=== PATIENT | female | born 1985 | race Caucasian/White ===

== ENCOUNTER 2016-12-02 18:50 | Emergency (ER) | payer SELFPAY ==
[~2016-12-02] VITALS: Ht 170.2 cm; Wt 66.2 kg
[2016-12-02 18:53] VITALS: TEMP 37.1; Ht 170.2 cm; Wt 66.2 kg
[2016-12-02] MEDS ORDERED: IBUPROFEN 800 MG TAB PO STA (20:39)
[2016-12-02] MEDS ORDERED: DIPHTHERIA/TETANUS/PERTUSSIS 0.5 ML SYR/VIAL IM. ONE (20:45)
[2016-12-02] MEDS ORDERED: BUPIVACAINE 0.5 % 5 MG/1 ML MPF 30ML VIAL INFIL ONE (20:45)
[2016-12-02] MEDS ORDERED: XYLOCAINE 1%/SOD BICARB 20 ML VIAL INFIL ONE (20:45)
--- NOTE | 2016-12-02 20:49 | EMERGENCY ROOM VISIT NOTE ---
ED Visit Note First contact with patient: 20:34 CHIEF COMPLAINT: Dog bite, right middle finger, Right shoulder pain HISTORY OF PRESENT ILLNESS: This 31-year-old female patient presents to the emergency department approximately 5 hours after getting bitten by her own dog on the right middle finger. The patient states she was breaking up a dogfight and her own dog bit her right middle finger. The dog is up-to-date with all of its vaccinations including rabies. While evaluating the patient, she begins complaining of right shoulder pain. She states "I think the dogs pulled my arm ". She states she is unable to raise the arm above the shoulder. She is unable to shrug her shoulders, and is unable to pronate without discomfort. The bleeding has stopped. Denies weakness or numbness of the finger. The patient has full range of motion of the fingers. The patient rates the pain as throbbing and 7/10. The patient denies any other injuries. The patient's tetanus shot is not up to date. REVIEW OF SYSTEMS: A 6 system review of systems was completed with positives and pertinent negatives listed in the HPI. ALLERGIES: None MEDICATIONS: None PMH: None SOCIAL HISTORY: Lives locally with family. She denies drug, alcohol use. The patient states she smokes less than one pack per day PHYSICAL EXAM: Vital Signs: Reviewed Nurse's notes, vital signs stable. GENERAL: This is a 31-year-old white female, in no acute distress, well developed, well nourished. SKIN: There are 3-0.5 cm long lacerations on the right middle finger. The edges gape apart with and without traction. There is no foreign material in the wound and it looks clean. There is no active bleeding. No deep structures such as tendons, bones, or significant blood vessels are seen in the base of the wound. Extension and flexion of the finger is full and strong. Full range of motion of the wrist and other fingers. Capillary refill less than 2 seconds. Normal sensation to light and sharp touch. MUSCULOSKELETAL: There is no deformity in the contour of the right shoulder and there are no josse deformities noted. There is negative sulcus sign. There is tenderness over the deltoid muscle and rotator cuff. The patient's range of motion is significantly limited due to pain. Supraspinatus strength 2/5. There is no clavicle tenderness. No tenderness of the humerus, elbow, wrist, or hand. Bottle Assembler strength 5/5. Radial pulse 2+. NECK: No tenderness to palpation over the cervical spine. HEART: Regular rate and rhythm without murmurs gallops or rubs. LUNGS: Clear to auscultation bilaterally without wheezes, rales or rhonchi. No accessory muscle use. No retractions. RADIOLOGY: X-Ray Right Shoulder: R SHOULDER MIN 2 VIEWS ROUTINE CLINICAL HISTORY: Right shoulder pain. COMPARISON: None FINDINGS: Alignment of the right shoulder is anatomic. No acute fracture is identified. IMPRESSION: No acute fracture or dislocation of the right shoulder. Electronically signed by: Candelario Luis M.D. 12/02/2016 9:52 PM Dictated Date/Time: 12/02/2016 9:50 PM EMERGENCY DEPARTMENT COURSE: I examined the patient. She initially did not complain about shoulder pain, however after the examination of her finger, she states "can I have like a pain killer or something". Her right shoulder is causing her significant amount of discomfort believes there to be a muscular problem from breaking up the dog fight. She states she thinks the dog's pulled her arm. An x-ray of the right shoulder was obtained and the patient was given 800 mg ibuprofen by mouth. X-ray was negative for acute fracture or dislocation. Verbal consent was obtained to perform the procedure. Using sterile technique the wound was cleansed with Betadine. 3 ml of 1% buffered lidocaine with 0.5% bupivacaine was used to perform a digital block to anesthetize the patient. The area was sterilely draped. Once the patient was anesthetized, the wounds were copiously irrigated under pressure with sterile saline. The wounds were explored and there were no deep structures injured. The lacerations were repaired using 5 total simple interrupted 5-0 nylon sutures, 2 in 2 of the lacerations (one medial, one lateral), and 1 in the other laceration - lateral. The patient tolerated the procedure well. Hemostasis was achieved. The area was cleaned with sterile saline and dressed with bacitracin ointment and bandage. The patient was given a tetanus booster (Adacel). The patient was discharged home in good condition with a homepack for her first 2 doses of Augmentin. I attest that I have personally reviewed the patient's current medication list. Patient was found to have normal blood pressure on screening and does not require follow-up. DIFFERENTIAL DIAGNOSIS: Laceration, contusion, puncture wound, dog bite, shoulder sprain or strain, fracture, and others DIAGNOSIS: Finger laceration, right shoulder pain Current/Historical Medications Scheduled Amoxicillin & Pot Clavulanate (Augmentin 875-125 mg), 1 TAB PO BID Allergies Coded Allergies: Banana (Unverified Allergy, Unknown, THROAT CLOSES/HIVES, 12/02/16) Vital Signs Date Time Temp Pulse Resp B/P (MAP) Pulse Ox O2 Delivery O2 Flow Rate FiO2 12/02/16 22:30 88 16 114/76 98 12/02/16 20:53 88 16 137/76 96 Room Air 12/02/16 18:53 37.1 101 16 126/80 96 Room Air Medications Administered Medications (Trade) Dose Ordered Sig/Nils Route Start Time Stop Time Status Last Admin Dose Admin Lidocaine HCl (Buffered Lidocaine 1% Inj) 20 ml ONE ONCE INFIL 12/02/16 20:45 12/02/16 20:46 DC 12/02/16 21:19 20 ML Ibuprofen (Motrin Tab) 800 mg NOW STAT PO 12/02/16 20:39 12/02/16 20:41 DC 12/02/16 21:18 800 MG Diphtheria/ Pertussis/Tetanus Vacc (Adacel Inj) 0.5 ml ONCE ONCE IM. 12/02/16 20:45 12/02/16 20:46 DC 12/02/16 21:19 0.5 ML Amoxicillin/ Clavulanate Potassium (Augmentin 875MG Home Pack) 875 homepack BID PO 12/02/16 22:30 12/02/16 22:31 DC 12/02/16 22:30 875 HOMEPACK Departure Information Impression Primary Impression: Dog bite Additional Impressions: Laceration of right middle finger w/o foreign body w/o damage to nail Right shoulder pain Dispostion Home / Self-Care Condition GOOD Prescriptions Amoxicillin & Pot Clavulanate (Augmentin 875-125 mg) 1 Tab Tab 1 TAB PO BID for 10 Days, #20 TAB Prov: Wilma Benoit, ALESSANDRA 12/02/16 Referrals No Doctor, Assigned (PCP) Patient Instructions ED Bite Dog, ED Laceration Ext Sutr Stap Tape, ED Sprain Shoulder, [facility] Additional Instructions You have received 5 total sutures on your middle finger. These sutures are NOT dissolvable and WILL need to be removed by a health care provider in 8-10 days. You can return to the Emergency Department or contact your Primary Care Provider to have the sutures removed. Proper wound care is essential for adequate wound healing and infection prevention. You can shower and clean the wound with soap and water. Do not scour over the wound, pat dry with a towel. Do not submerse the wound (i.e. bathe or dish wash) until the sutures have been removed. You can use an antibiotic ointment with a dressing over the wound for the next 3-4 days. After this time you may leave the wound dry and open to the air. If crust develops over the wound you can use a Q-tip to apply a 1:1 peroxide:water solution to clean the wound. Look for signs of infection of the wound including: increased pain, swelling, foul discharge, streaking, or increased temperature. If any of these are noticed you should return to the Emergency Department for further assessment and treatment. As with any laceration you may have received nerve damage to the surrounding tissues. This damage may or may not be permanent. You should keep the area covered with sunscreen for the first 6 months to 1 year when at risk for exposure to help minimize scarring. You can also use scar reducing creams or Vitamin E oil to help minimize scarring. You may consider an arm sling for comfort for the right shoulder pain. If this does not resolve in 1-2 weeks, follow up with your PCP or orthopedics for further evaluation. X-ray was negative at this time. Ibuprofen(Motrin, Advil) may be used for fever or pain. Use 600mg every six hours as needed. Take with food. Avoid using more than 2400mg in a 24 hour period. Do not use 2400mg per day for more than three consecutive days without physician direction. Prolonged inappropriate use can lead to stomach upset or ulcers. (AND/OR) Acetaminophen(Tylenol) may be used for fever or pain. Use 1000mg every six hours as needed. Avoid using more than 3000mg in a 24 hour period. Return to the emergency department if your symptoms worsen despite treatment course outlined above. Problem Qualifiers Primary Impression: Dog bite Encounter type: initial encounter Qualified Codes: W54.0XXA - Bitten by dog , initial encounter Additional Impressions: Laceration of right middle finger w/o foreign body w/o damage to nail Encounter type: initial encounter Qualified Codes: S61.212A - Laceration without foreign body of right middle finger without damage to nail, initial encounter Right shoulder pain Chronicity: acute Qualified Codes: M25.511 - Pain in right shoulder
--- NOTE | 2016-12-02 21:53 | DIAGNOSTIC IMAGING REPORT ---
R SHOULDER MIN 2 VIEWS ROUTINE CLINICAL HISTORY: Right shoulder pain. COMPARISON: None FINDINGS: Alignment of the right shoulder is anatomic. No acute fracture is identified. IMPRESSION: No acute fracture or dislocation of the right shoulder. Electronically signed by: Candelario Luis M.D. 12/02/2016 9:52 PM Dictated Date/Time: 12/02/2016 9:50 PM
[2016-12-02] MEDS ORDERED: AMOX875T PO (22:28)
[2016-12-02 22:30] VITALS: BP 114/76; PULSE 88; O2SAT 98
[2016-12-02] MEDS ORDERED: AMOXICIL/CLAVU 875MG HOME PACK PO SCH (22:30)
== END 2016-12-02 22:30 | disposition home or self-care (01) ==
LOC: C.EDB 18:51 → C.EDD 22:30
DX: S61.212A Laceration without foreign body of right middle finger without damage to nail, initial encounter (principal); W54.0XXA Bitten by dog, initial encounter; Z23 Encounter for immunization; M25.511 Pain in right shoulder; F17.200 Nicotine dependence, unspecified, uncomplicated; Z91.018 Allergy to other foods

== ENCOUNTER 2019-01-11 17:53 | Inpatient (IN) ==
[2019-01-11] MEDS ORDERED: OXYTOCIN 30 UNITS/500 ML BAG IV PRN ×3 (18:19→23:21)
[2019-01-11] MEDS: LACTATED RINGER'S 1,000 ML IV PRN ×2 (18:30→19:37)
[2019-01-11 18:36] LABS: Mean Corpuscular Hemoglobin 30.2 pg (25-34); Mean Corpuscular Volume 88.2 fL (80-100); Mean Platelet Volume 10.4 fL (7.4-10.4); Platelet Count 202 K/uL (130-400); RDW Coefficient of Variation 14.4 % (11.5-14.5); RDW Standard Deviation 46.8 fL (36.4-46.3); Red Blood Count 3.97 M/uL (4.2-5.4); White Blood Count 13.62 K/uL (4.8-10.8)
[2019-01-11 18:37] LABS: Mean Corpuscular Hgb Conc 34.3 g/dL (32-36)
[2019-01-11] MEDS ORDERED: ePHEDrine sulfate 50 MG/ML AMP ONE (18:39)
[2019-01-11] MEDS ORDERED: BUPIVACAINE 0.25% 30 ML VIAL ONE (18:39)
[2019-01-11] MEDS ORDERED: fentaNYL citrate 100 MCG/2 ML VIAL ONE (18:39)
[2019-01-11] MEDS ORDERED: fentaNYL 2MCG/ML ROPIV 1.25MG/ML 100 ML BAG EPI ONE (18:40)
[2019-01-11 18:50] LABS: Amphetamines+Metham, Urine Neg (Neg); Barbiturates, Urine Neg (Neg); Benzodiazepine, Urine Neg (Neg); Cocaine, Urine Neg (Neg); MDMA (Ecstacy), Urine Neg (Neg); Methadone, Urine Neg (Neg); Opiate, Urine Neg (Neg); Phencyclidine, Urine Neg (Neg)
[2019-01-11] MEDS ORDERED: ONDANSETRON INJ 2 MG/ML 2 ML VIAL IV PRN (19:18)
[2019-01-11] MEDS ORDERED: NALBUPHINE HCL INJ 10 MG/ML AMP IV PRN (19:18)
[2019-01-11] MEDS ORDERED: ePHEDrine sulfate 50 MG/ML AMP IV PRN (19:18)
[2019-01-11] MEDS ORDERED: NALOXONE HCL 0.4 MG/1 ML VIAL/CARP IV PRN (19:18)
[2019-01-11] MEDS ORDERED: fentaNYL 2MCG/ML ROPIV 1.25MG/ML 100 ML BAG EPI PRN (19:18)
[2019-01-11] MEDS ORDERED: DiphenhydrAMINE HCL 50 MG/ML VIAL IV PRN (19:18)
[2019-01-11] MEDS ORDERED: NALOXONE HCL 1 MG in SODIUM CHLORIDE 0.9% 1000ML 1,000 ML IV PRN (19:18)
--- NOTE | 2019-01-11 19:24 | Anesthesiology Consultation ---
Date of Service January 11, 2019 Assessment & Plan Chart Review Chart Review: Patient NOT seen in Pre Admission Testing and Acceptable Risk for Labor Epidural Consults Requested none ASA ASA2 Proposed Anesthesia Anesthesia Type: Labor Epidural and CSE Risk / Benefits Reviewed With: PT / POA / Parent / Guardian, Accepts Plan and Informed Consent Obtained History Height/Weight Height: 5 ft 7 in Weight: 88.904 kg Allergies Allergy/AdvReac Type Severity Reaction Status Date / Time banana Allergy Severe THROAT Verified 01/11/19 19:11 CLOSES/HIVES Medications Home Medications Medication Instructions Recorded Confirmed Last Taken albuterol sulfate 0.63 mg INHALATION QID PRN 01/11/19 01/11/19 Unknown calcium carbonate [Tums] 200 mg PO BID 01/11/19 01/11/19 01/10/19 ondansetron HCl [Zofran] 4 mg PO BID PRN 01/11/19 01/11/19 01/11/19 pediatric multivitamin no.76 1 tab PO DAILY 01/11/19 01/11/19 01/10/19 [Neeru Complete] Active Medications Generic Name Dose Route Start Last Admin Trade Name Freq PRN Reason Stop Dose Admin Lactated Ringer's 1,000 mls @ 125 mls/hr 01/11/19 18:30 01/11/19 18:30 Lr IV 01/13/19 18:29 999 mls/hr .Q8H PRN Administration L&D Protocol Protocol Past Medical History Medical History (Updated 01/11/19 @ 19:23 by Rich Perez MD) Asthma Uses Albuterol PRN Bleeding in early Drug abuse, marijuana History of varicella Maternal UTI (urinary tract infection) Maternal UTI (urinary tract infection) (Inactive) Nausea and vomiting in (Inactive) No significant past medical history Exercise / Class Metabolic Activity II 4-5 Yardwork/Stairs/Walk up hill Past Family History Family History Mother Ovarian cancer Other Family history non-contributory Past Surgical History Surgical History No significant past surgical history S/P wisdom tooth extraction Past Anesthesia History No Hx of Anesthesia Complications and No Family Hx of Anesthesia Complications Social History Smoking Status: Former smoker tobacco type: cigarettes Smoking cigarettes per day: 1 ppd Do You Dip or Chew Tobacco: No Hx Alcohol Use: No Hx Substance Use: Yes substance use type: marijuana Last Used Substance: Hours (ago) Last Used Substance Other:: 1400 Review of Systems no chest pain or sob Physical Exam Vital Signs Last Vital Signs Temp 36.9 C 01/11/19 19:11 Pulse 85 01/11/19 19:20 Resp 18 01/11/19 19:11 BP 109/76 01/11/19 19:00 Pulse Ox 99 01/11/19 19:20 ENMT Mouth: no TMJ abnormality Thyromental Distance: > or= 3.5 Finger Breadths Mallampati Class: II Neck normal visual inspection Respiratory normal respiratory effort Auscultation: lungs clear to auscultation bilaterally Cardiovascular Rate/Rhythm: regular rate and regular rhythm Musculoskeletal Spine: normal cervical ROM Neurologic moves all extremities Psychiatric Orientation: alert and oriented x 3 Testing Laboratory Results 01/11/19 18:27
--- NOTE | 2019-01-11 19:25 | Anesthesiology Consultation ---
Date of Service January 11, 2019 History Height/Weight Height: 5 ft 7 in Weight: 88.904 kg Allergies Allergy/AdvReac Type Severity Reaction Status Date / Time banana Allergy Severe THROAT Verified 01/11/19 19:11 CLOSES/HIVES Medications Home Medications Medication Instructions Recorded Confirmed Last Taken albuterol sulfate 0.63 mg INHALATION QID PRN 01/11/19 01/11/19 Unknown calcium carbonate [Tums] 200 mg PO BID 01/11/19 01/11/19 01/10/19 ondansetron HCl [Zofran] 4 mg PO BID PRN 01/11/19 01/11/19 01/11/19 pediatric multivitamin no.76 1 tab PO DAILY 01/11/19 01/11/19 01/10/19 [Flintstones Complete] Active Medications Generic Name Dose Route Start Last Admin Trade Name Freq PRN Reason Stop Dose Admin Lactated Ringer's 1,000 mls @ 125 mls/hr 01/11/19 18:30 01/11/19 18:30 Lr IV 01/13/19 18:29 999 mls/hr .Q8H PRN Administration L&D Protocol Protocol NPO Date Last Intake of Fluids: 01/11/19 Time Last Intake of Fluids: 18:30 Date Last Intake of Solids: 01/11/19 Time Last Intake of Solids: 16:30 Exercise / Class Metabolic Activity II 4-5 Yardwork/Stairs/Walk up hill Past Family History Family History Mother Ovarian cancer Other Family history non-contributory Past Surgical History Surgical History No significant past surgical history S/P wisdom tooth extraction Past Anesthesia History No Hx of Anesthesia Complications and No Family Hx of Anesthesia Complications History of PONV No Hx of PONV and History of PONV Social History Smoking Status: Former smoker tobacco type: cigarettes Smoking cigarettes per day: 1 ppd Do You Dip or Chew Tobacco: No Hx Alcohol Use: No Hx Substance Use: Yes substance use type: marijuana Last Used Substance: Hours (ago) Last Used Substance Other:: 1400 Physical Exam Vital Signs Last Vital Signs Temp 36.9 C 01/11/19 19:11 Pulse 85 01/11/19 19:20 Resp 18 11/24/19 19:11 BP 109/76 01/11/19 19:00 Pulse Ox 99 01/11/19 19:20 ENMT Mouth: no TMJ abnormality Thyromental Distance: > or= 3.5 Finger Breadths Mallampati Class: II Neck normal visual inspection Respiratory normal respiratory effort Auscultation: lungs clear to auscultation bilaterally Cardiovascular Rate/Rhythm: regular rate and regular rhythm Musculoskeletal Spine: normal cervical ROM Neurologic moves all extremities Psychiatric Orientation: alert and oriented x 3 Testing Laboratory Results 01/11/19 18:27
--- NOTE | 2019-01-11 19:59 | History & Physical Report ---
Date of Service January 11, 2019 Assessment & Plan (1) Supervision of normal intrauterine in multigravida: -Tracing category 2 -Patient comfortable with epidural -Contractions spaced after epidural -Pitocin augmentation -Anticipate vaginal delivery (2) Drug abuse, marijuana: -Urine drug screen as explained to the patient -If positive, social service consult with CYS referral History of Present Illness Chief Complaint: Labor Primary Care Provider: NO PCP The patient is a 33-year-old 3 para 1 with an EDC of 14 January, at 39+ weeks gestational age, who presents to labor and delivery for a labor check. Patient states her contractions began in earnest at approximately 1600 hrs. on day of admission. Patient denies rupture of membranes or vaginal bleeding. Patient's course was remarkable for a positive urine drug screen at her new OB visit. This was positive for marijuana. Patient had been counseled to discontinue the marijuana during the . Laboratory values for the show blood type of O+, antibody negative, rubella immune, hepatitis B negative, she had a negative cystic fibrosis, negative SMA, negative cell free DNA screen. She had a normal 1 hour Glucola x2, and a negative third trimester beta strep culture. Allergies Allergy/AdvReac Type Severity Reaction Status Date / Time banana Allergy Severe THROAT Verified 01/11/19 19:11 CLOSES/HIVES Home Medications Home Medications Medication Instructions Recorded Confirmed Type albuterol sulfate 0.63 mg INHALATION QID PRN 01/11/19 01/11/19 History calcium carbonate [Tums] 200 mg PO BID 01/11/19 01/11/19 History ondansetron HCl [Zofran] 4 mg PO BID PRN 01/11/19 01/11/19 History pediatric multivitamin no.76 1 tab PO DAILY 01/11/19 01/11/19 History [Flintstones Complete] Patient History Surgical History No significant past surgical history S/P wisdom tooth extraction Family History Mother Ovarian cancer Other Family history non-contributory Social History Preferred Language: Icelandic Communication Ability: Effective Beliefs That Will Affect Care: None marital status: Single Current Living Situation: Significant Other Current Living Situation Comment: Lives with boyfriend and 10 year old daughter in a house Other Information That Helps Us Care for You: No Feels Safe at Home: Yes Safety Concerns: Feels Safe At This Time Smoking Status: Former smoker Tobacco Type: cigarettes ; packs per day: 0.5 ; Cigarettes Per Day: 1 ppd ; Do You Dip or Chew Tobacco: No ; Second Hand Exposure: No ; Tobacco Cessation Education Requested by Patient: No Hx Alcohol Use: No Hx Substance Use: Yes substance use type: marijuana Last Used Substance: Hours (ago) Last Used Substance Other:: 1400 Physical Exam Constitutional: WD/WN, vitals as above Respiratory: Auscultation: lungs clear to auscultation bilaterally Cardiovascular: RRR, no murmur, no edema Extremities: no calf tenderness Gastrointestinal (Abdomen): Gravid, vertex, positive heart tones, estimated weight of 7-1/2 pounds Genitourinary: Cervix: 5 cm / 80%/-2, artificial rupture of membranes, clear fluid Results & Data Vital Signs (Past 12 Hours) Vital Signs Temp Pulse Resp BP Pulse Ox 01/11/19 19:51 86 96 01/11/19 19:50 85 121/62 01/11/19 19:48 83 124/59 L 01/11/19 19:46 87 101/58 L 96 01/11/19 19:44 79 112/58 L 01/11/19 19:42 77 113/59 L 01/11/19 19:40 82 108/55 L 97 01/11/19 19:38 74 97/53 L 01/11/19 19:35 92 H 98 01/11/19 19:30 99 H 98 01/11/19 19:28 103 H 94 01/11/19 19:25 83 98 01/11/19 19:20 85 99 01/11/19 19:11 98.4 F 18 01/11/19 19:00 79 109/76 01/11/19 18:27 98.1 F 18 01/11/19 18:03 94 H 128/77
--- NOTE | 2019-01-11 21:10 | Labor Progress Brief Note ---
Date of Service January 11, 2019 Subjective Reason For Note: Routine Evaluation Assessment & Plan (1) Supervision of normal intrauterine in multigravida: - tracing Cat II - continue pitocin Physical Exam Genitourinary: OB Exam Monitor Tracing: + category II, + normal FHT variabil ity and + variable decelerations Cervix: 6-7/90/0 Results & Data Vital Signs (Past 12 Hours) Vital Signs Temp Pulse Resp BP Pulse Ox 01/11/19 21:06 70 97 01/11/19 21:05 73 123/57 L 01/11/19 21:01 68 96 01/11/19 21:00 18 01/11/19 20:56 71 96 01/11/19 20:51 65 113/61 97 01/11/19 20:46 59 L 95 01/11/19 20:41 70 96 01/11/19 20:36 64 96 01/11/19 20:35 72 122/68 01/11/19 20:31 74 18 96 01/11/19 20:26 86 96 01/11/19 20:21 66 115/64 95 01/11/19 20:20 18 01/11/19 20:16 78 96 01/11/19 20:11 73 97 01/11/19 20:10 18 01/11/19 20:06 70 118/57 L 96 01/11/19 20:01 70 96 01/11/19 20:00 18 01/11/19 19:56 82 96 01/11/19 19:55 98.4 F 18 01/11/19 19:51 86 96 01/11/19 19:50 85 121/62 01/11/19 19:48 83 124/59 L 01/11/19 19:46 87 101/58 L 96 01/11/19 19:44 79 112/58 L 01/11/19 19:42 77 113/59 L 01/11/19 19:40 82 108/55 L 97 01/11/19 19:38 74 97/53 L 01/11/19 19:35 92 H 98 01/11/19 19:30 99 H 98 01/11/19 19:28 103 H 94 01/11/19 19:25 83 98 01/11/19 19:20 85 99 01/11/19 19:11 98.4 F 18 01/11/19 19:00 79 109/76 01/11/19 18:27 98.1 F 18 01/11/19 18:03 94 H 128/77
--- NOTE | 2019-01-11 23:11 | Anesthesia Procedure Note ---
Date of Service January 11, 2019 Anesthesia Post Epidural Note Vital Signs Vital Signs: Temp Pulse Resp BP Pulse Ox 36.9 C 91 H 18 126/63 96 01/11/19 21:00 01/11/19 23:07 01/11/19 21:30 01/11/19 23:05 01/11/19 23:07 Notes Mental Status: alert / awake / arousable and participated in evaluation Nausea / Vomiting: adequately controlled Pain: adequately controlled Airway Patency, RR, SpO2: stable & adequate BP & HR: stable & adequate Hydration State: stable & adequate Neuraxial Anesthesia: was administered and sensory block is resolving Anesthetic Complications: no major complications apparent and Pt Satisfied with anesthetic care Epidural: Removed without complications and With tip intact
--- NOTE | 2019-01-11 23:13 | Delivery Summary ---
Vaginal Delivery Summary Date of Service January 11, 2019 Vaginal Delivery Summary Findings: Viable male with Apgars of 8 and 9, baby delivered over midline second-degree laceration, nuchal cord x1 reduced on the perineum, cord gases and cord blood samples obtained. The patient is a 33-year-old 3 para 1 with an EDC of 14 January, at 39+ weeks gestational age, who presents to labor and delivery for a labor check. Patient states her contractions began in earnest at approximately 1600 hrs. on day of admission. Patient denies rupture of membranes or vaginal bleeding. Patient's course was remarkable for a positive urine drug screen at her new OB visit. This was positive for marijuana. Patient had been counseled to discontinue the marijuana during the . Laboratory values for the show blood type of O+, antibody negative, rubella immune, hepatitis B negative, she had a negative cystic fibrosis, negative SMA, negative cell free DNA screen. She had a normal 1 hour Glucola x2, and a negative third trimester beta strep culture. Upon admission the patient was 3 to 4 cm dilated 50% effaced and -2 station. She was extremely uncomfortable and anesthesia was consulted and an epidural was placed. Following placement of the epidural the patient's contractions spaced out. Over the next several hours the patient progressed to full dilatation and began her second stage. During the second stage she had variable decelerations with good variability. She pushed for approximately 45 minutes delivering the viable male infant over a midline second-degree laceration nuchal cord x1 was reduced on the perineum and the baby was delivered. Cord gases and cord blood samples were obtained. The placenta was delivered spontaneously and sent for pathological evaluation. Inspection of the perineum showed a midline second degree laceration which was repaired with 4-0 Vicryl. Estimated blood loss for the delivery was 300 cc. Sponge needle count was correct.
[2019-01-11] MEDS ORDERED: BENZOCAINE 20% AER SPR 82.5 GM CAN EXT PRN (23:21)
[2019-01-11] MEDS ORDERED: SUPERCREAM 0.870% 15 GM JAR EXT PRN (23:21)
[2019-01-11] MEDS ORDERED: DIPHTHERIA/TETANUS/PERTUSSIS 0.5 ML SYR/VIAL IM ONE (23:21)
[2019-01-11] MEDS ORDERED: HYDROCORTISONE ACETATE 25 MG SUPP PR PRN (23:21)
[2019-01-11 23:45] LABS: Base Excess Cord Venous Blood -1.3 mEq/L (-7.7-1.9); Cord Venous Blood HCO3 25 mmol/L (18.4-26.8); Cord Venous Blood PCO2 45 mmHg (30.4-57.2); Cord Venous Blood PO2 30 mmHg (14.1-43.3); Cord Venous Blood pH 7.35 (7.20-7.44)
[2019-01-11 23:46] LABS: Base Excess Cord Arterial Bld -6.3 mEq/L (-9-1.8); CO2 Cord Arterial Blood 68 mmHg (39.1-73.5); HCO3 Cord Arterial Blood 24 mmol/L (19.7-28.5); PO2 Cord Arterial Blood 23.6 % (4.1-31.7); pH Cord Arterial Blood 7.16 (7.1-7.38)
[2019-01-11 23:47] LABS: Oxygen Sat Cord Arterial Blood < 60.0 % (<60)
--- NOTE | 2019-01-12 06:10 | Obstetrical Progress Note ---
Date of Service January 12, 2019 Assessment & Plan (1) Status post vaginal delivery: Mayela is a 33 yo on PPD1 after a at 39w - GBS -, Blood Type O+, Rubella immune -Vitals reviewed and WNL (Tmax 37.1) -patient is doing clinically well Continue routine post care - After discharge will have [address] Finney. Supervising Physician Co-Signing Physician Notes Resident Physician Supervision Note: I was present with Dr. Bhakta during the history and exam. I discussed the case with the resident and agree with the findings and plan as documented in the note. Any exceptions or clarifications are listed here: [None] Documented By: Warren Finney Jr, MD, FACOG Subjective Pain well controlled Ambulation: yes Voiding: yes Passing Gas:: Yes Diet Tolerance:: regular Lochia:: moderate Feeding Type:: breast feeding Review of Systems Constitutional: no fever, no chills and no sweats Eyes: no worsening vision Respiratory: no cough and no dyspnea Cardiovascular: no chest pain, no palpitations, no edema and no calf pain Gastrointestinal: no nausea and no vomiting Genitourinary: no dysuria and no urinary frequency Neurologic: no headache(s) Physical Exam Constitutional: WD/WN, vitals as above no acute distress Respiratory: normal respiratory effort, lungs clear to auscultation does not use accessory muscles Auscultation: no crackles, no rales, no rhonchi, no wheezes and no pleural rub Cardiovascular: Rate/Rhythm: regular rate and regular rhythm Heart Sounds: normal S1 and normal S2; no gallop, no murmur and no cardiac rub Extremities: no calf tenderness and no pedal edema Gastrointestinal (Abdomen): Inspection/Auscultation: normal bowel sounds; abdomen not distended Percussion/Palpation: abdomen soft Genitourinary: Uterus: fundus firm, palpable 1 cm below the umbilicus Results & Data Vital Signs (Past 12 Hours) Vital Signs Temp Pulse Pulse Resp BP BP Pulse Ox 01/12/19 04:40 36.8 C 57 L 18 116/64 01/12/19 02:00 36.7 C 72 18 96/60 L 01/12/19 01:13 36.6 C 91 H 18 126/66 01/12/19 01:12 82 97 01/12/19 01:07 89 96 01/12/19 01:02 79 95 01/12/19 00:58 73 118/53 L 01/12/19 00:57 74 97 01/12/19 00:52 79 97 01/12/19 00:47 74 96 01/12/19 00:46 83 18 116/56 L 96 01/12/19 00:42 76 97 01/12/19 00:37 67 95 01/12/19 00:32 67 97 01/12/19 00:28 62 124/58 L 01/12/19 00:27 69 97 01/12/19 00:22 87 95 01/12/19 00:17 77 95 01/12/19 00:13 74 18 119/56 L 86 L 01/12/19 00:12 80 98 01/12/19 00:07 75 93 01/12/19 00:02 77 95 01/11/19 23:59 78 18 127/59 L 93 01/11/19 23:57 77 95 01/11/19 23:52 77 96 01/11/19 23:51 77 90 01/11/19 23:47 83 95 01/11/19 23:44 77 93 01/11/19 23:43 81 121/78 01/11/19 23:42 74 98 01/11/19 23:37 88 97 01/11/19 23:32 78 97 01/11/19 23:28 81 18 100/71 97 01/11/19 23:27 87 96 01/11/19 23:25 91 H 93 01/11/19 23:22 88 97 01/11/19 23:17 88 96 01/11/19 23:13 87 18 135/65 01/11/19 23:12 96 H 95 01/11/19 23:07 91 H 96 01/11/19 23:05 90 126/63 01/11/19 23:02 89 96 01/11/19 22:57 84 97 01/11/19 22:53 98 H 116/72 01/11/19 22:52 95 H 83 L 01/11/19 22:46 89 96 01/11/19 22:41 129 H 98 01/11/19 22:37 75 131/80 01/11/19 22:36 111 H 97 01/11/19 22:33 72 94 01/11/19 22:31 88 95 01/11/19 22:26 89 95 01/11/19 22:21 66 94 01/11/19 22:19 91 H 92 01/11/19 22:16 80 96 01/11/19 22:14 116 H 94 01/11/19 22:11 69 95 01/11/19 22:08 118 H 94 01/11/19 22:06 85 117/71 95 01/11/19 22:01 58 L 96 01/11/19 21:56 69 98 01/11/19 21:51 73 103/62 96 01/11/19 21:46 63 96 01/11/19 21:41 70 97 01/11/19 21:36 60 124/60 97 01/11/19 21:31 66 96 01/11/19 21:30 18 01/11/19 21:26 76 98 01/11/19 21:22 75 113/65 01/11/19 21:21 74 96 01/11/19 21:16 81 97 01/11/19 21:11 65 97 01/11/19 21:06 70 97 01/11/19 21:05 73 123/57 L 01/11/19 21:01 68 96 01/11/19 21:00 36.9 C 18 01/11/19 20:56 71 96 01/11/19 20:51 65 113/61 97 01/11/19 20:46 59 L 95 01/11/19 20:41 70 96 01/11/19 20:36 64 96 01/11/19 20:35 72 122/68 01/11/19 20:31 74 18 96 01/11/19 20:26 86 96 01/11/19 20:21 66 115/64 95 01/11/19 20:20 18 01/11/19 20:16 78 96 01/11/19 20:11 73 97 01/11/19 20:10 18 01/11/19 20:06 70 118/57 L 96 01/11/19 20:01 70 96 01/11/19 20:00 18 01/11/19 19:56 82 96 01/11/19 19:55 36.9 C 18 01/11/19 19:51 86 96 01/11/19 19:50 85 121/62 01/11/19 19:48 83 124/59 L 01/11/19 19:46 87 101/58 L 96 01/11/19 19:44 79 112/58 L 01/11/19 19:42 77 113/59 L 01/11/19 19:40 82 108/55 L 97 01/11/19 19:38 74 97/53 L 01/11/19 19:35 92 H 98 01/11/19 19:30 99 H 98 01/11/19 19:28 103 H 94 01/11/19 19:25 83 98 01/11/19 19:20 85 99 01/11/19 19:11 36.9 C 18 01/11/19 19:00 79 109/76 01/11/19 18:27 36.7 C 18 Resident Activity Tracking Resident Involvement: Resident Care Provided Care Provided: OB Delivery
[2019-01-12] MEDS: DOCUSATE SODIUM 100 MG CAP PO SCH ×2 (07:56→20:48)
[2019-01-12] MEDS: IBUPROFEN 600 MG TAB PO PRN ×4 (07:56→23:57)
[2019-01-12] MEDS: PRENATAL VITAMIN 1 TAB PO SCH (07:57)
[2019-01-12] MEDS: ACETAMINOPHEN 325 MG TAB PO PRN ×3 (08:38→20:48)
[2019-01-12] MEDS ORDERED: BISACODYL 5 MG TABEC PO SCH (20:00)
--- NOTE | 2019-01-13 06:13 | Obstetrical Progress Note ---
Date of Service January 13, 2019 Assessment & Plan (1) Status post vaginal delivery: Mayela is a 33 yo on PPD2 after a at 39w - GBS -, Blood Type O+, Rubella immune -Vitals reviewed and WNL (Tmax 37.1) - patient had + MJ screen at first post- visit; admission level pending; social service consult placed -patient is doing clinically well Discharge instructions reviewed - After discharge will have [address] Finney. Supervising Physician Co-Signing Physician Notes Resident Physician Supervision Note: I interviewed and examined the patient. Discussed with [Thal] and agree with findings and plan as documented in the note. Any exceptions or clarifications are listed here: [None] Documented By: Romana Hong MD, FACOG Subjective Pain well controlled Ambulation: yes Voiding: yes Passing Gas:: Yes Diet Tolerance:: regular Lochia:: mild Feeding Type:: breast feeding Review of Systems Constitutional: no fever, no chills and no sweats Eyes: no worsening vision Respiratory: no cough and no dyspnea Cardiovascular: no chest pain, no palpitations, no edema and no calf pain Gastrointestinal: no nausea and no vomiting Genitourinary: no dysuria and no urinary frequency Neurologic: no headache(s) Physical Exam Constitutional: WD/WN, vitals as above no acute distress Respiratory: normal respiratory effort, lungs clear to auscultation does not use accessory muscles Auscultation: no crackles, no rales, no rhonchi, no wheezes and no pleural rub Cardiovascular: Rate/Rhythm: regular rate and regular rhythm Heart Sounds: normal S1 and normal S2; no gallop, no murmur and no cardiac rub Extremities: no calf tenderness and no pedal edema Gastrointestinal (Abdomen): Inspection/Auscultation: normal bowel sounds; abdomen not distended Percussion/Palpation: abdomen soft Genitourinary: Uterus: fundus firm, palpable 2 cm below the umbilicus Results & Data Vital Signs (Past 12 Hours) Vital Signs Temp Pulse Resp BP Pulse Ox 01/13/19 00:00 36.8 C 68 18 106/67 97 01/12/19 19:40 37.0 C 80 18 112/67 96 Resident Activity Tracking Resident Involvement: Resident Care Provided Care Provided: OB Delivery
[2019-01-13] MEDS: ACETAMINOPHEN 325 MG TAB PO PRN ×2 (06:26→13:56)
[2019-01-13 07:40] LABS: Hematocrit (blood only) 34.6 % (37-47); Hemoglobin 11.7 g/dL (12.0-16.0)
[2019-01-13] MEDS: DOCUSATE SODIUM 100 MG CAP PO SCH (08:56)
[2019-01-13] MEDS: PRENATAL VITAMIN 1 TAB PO SCH (08:56)
[2019-01-13] MEDS: IBUPROFEN 600 MG TAB PO PRN (10:39)
== END 2019-01-13 15:05 | disposition home or self-care (01) | DRG 806 ==
LOC: OPB 17:53 → 4S1 17:54 → 4S2 01-12 02:13

== ENCOUNTER 2021-07-14 13:33 | Inpatient (IN) ==
[2021-07-14] MEDS ORDERED: OXYTOCIN 30 UNITS/500 ML BAG IV PRN ×3 (14:16→22:24)
--- NOTE | 2021-07-14 14:22 | History & Physical Report ---
Date of Service July 14, 2021 Assessment & Plan (1) Supervision of elderly multigravida: Plan: Mayela is a 36-year-old admitted at 40 weeks 3 days gestational age for induction of labor for late term . Patient doing well today. 1. Fetus: Cat 1 2. Labor: Pitocin. Will AROM when able 3. GBS negative 4. Vitals: WNL (2) Post-term , 40-42 weeks of gestation: Admission and Anticipated Discharge Date Admission Date: July 14, 2021 History of Present Illness Primary Care Provider: Tiesha Galloway MD Mayela is a 36-year-old At 40 weeks 3 days gestational age presents for induction of labor for late term . patient doing well today. A complicated by advanced maternal age but otherwise has been uncomplicated. OB Labs: Blood Type O Positive 11/29/20 Antibody Screen NEGATIVE 11/29/20 Hemoglobin 11.7 g/dL (12.0-16.0) L 04/20/21 Hematocrit 34.9 % (37-47) L 04/20/21 Mean Corpuscular Volume 86.8 fL (80-100) 11/29/20 Platelet Count 317 K/uL (130-400) 11/29/20 Rubella IgG Antibody Immune (Immune) 11/29/20 Rapid Plasma Reagin Nonreactive (Nonreactive) 11/29/20 Hepatitis B Surface Antigen Neg (Neg) 11/29/20 HIV (1&2) Ab and P24 Ag, 4th Gener Neg (Neg) 11/29/20 Glucose 1 Hour 50 gm Load 113 mg/dl (70-130) 04/20/21 Maternal Serum Alpha Fetoprotein 27.1 ng/mL 01/26/21 OB Optional Labs: Chlamydia trachomatis RNA NOT DETECTED (NOT DETECTED) 11/29/20 Neisseria gonorrhoeae RNA NOT DETECTED (NOT DETECTED) 11/29/20 Alpha Fetoprotein Triple Screen SEE NOTE 01/26/21 Labs Reviewed: CF/SMA negative in prior (06/05/18) low risk cfdna neg afp Allergies Allergy/AdvReac Type Severity Reaction Status Date / Time banana Allergy Severe THROAT Verified 07/13/21 10:20 CLOSES/HIVES Home Medications Medication Instructions Recorded Confirmed Type prenat.vits,antonia,oli-kgfs-sazyu 1 tab PO DAILY 11/22/20 07/13/21 History albuterol sulfate 90 mcg/actuation 2 puff INH QID PRN #8 gm 02/21/21 07/13/21 Rx aerosol inhaler Patient History Medical History (Updated 07/14/21 @ 15:07 by Srinivas Zaragoza MD) Asthma Uses Albuterol PRN Asthma Bleeding in early Drug abuse, marijuana Previous . History of varicella Maternal UTI (urinary tract infection) Maternal UTI (urinary tract infection) Nausea and vomiting in No significant past medical history Surgical History No significant past surgical history S/P wisdom tooth extraction Family History Mother Ovarian cancer Other Family history non-contributory Denies family history of Prostate cancer Myocardial infarction Breast cancer Colorectal cancer Social History Smoking Status: Former smoker packs per day: 0.5; Cigarettes Per Day: 1 ppd; Second Hand Exposure: No; Do You Dip or Chew Tobacco: No; Tobacco Cessation Education Requested by Patient: No Hx Alcohol Use: No Hx Substance Use: No Preferred Language: Kazakh Communication Ability: Effective Visual Impairment: No Limitations Hearing Ability: Normal Trichologist Required: No Beliefs That Will Affect Care: None marital status: Single marital status details: Dexter Cox (39) [phone] Current Living Situation: Family Current Living Situation Comment: Dexter, Ovidio kids, dogs and cats current occupational status: employed current occupation: cashier wrapper. How many Children do You have: 2 Other Information That Helps Us Care for You: No Feels Safe at Home: Yes Safety Concerns: Feels Safe At This Time caffeine: Yes Dental Care, Regularly: No Physical Activity Frequency: Does not Exercise Seatbelt Use: always Sunscreen Use: Yes Assistive Devices: None Physical Exam Genitourinary: OB Exam Abdomen: + vertex Manual OB Exam: + cervical dilation (1.5), + cervical effacement 70% and + station high OB Exam Monitor Tracing: + external FHT monitor used, + external uterine monitor used, + category I and + normal FHT variability; no early decelerations present, no late decelerations present and no variable decelerations Results & Data ([facility]) Vital Signs (Past 12 Hours) Vital Signs Pulse BP 07/14/21 14:07 88 115/61 Coding Level of Care Code None Diagnoses Supervision of elderly multigravida O09.529 Post-term , 40-42 weeks of gestation O48.0
[2021-07-14 14:44] LABS: Hematocrit (blood only) 33.9 % (37-47); Hemoglobin 11.1 g/dL (12.0-16.0); Mean Corpuscular Hemoglobin 27.8 pg (25-34); Mean Corpuscular Hgb Conc 32.7 g/dL (32-36); Mean Corpuscular Volume 84.8 fL (80-100); Platelet Count 238 K/uL (130-400); RDW Coefficient of Variation 14.1 % (11.5-14.5); White Blood Count 11.16 K/uL (4.8-10.8)
[2021-07-14] MEDS: LACTATED RINGER'S 1,000 ML IV PRN ×2 (15:09→17:54)
[2021-07-14] MEDS ORDERED: ePHEDrine sulfate 50 MG/ML AMP ONE (16:16)
[2021-07-14] MEDS ORDERED: BUPIVACAINE 0.25% 30 ML VIAL ONE (16:17)
[2021-07-14] MEDS ORDERED: fentaNYL citrate 100 MCG/2 ML VIAL ONE (16:17)
[2021-07-14] MEDS ORDERED: SODIUM CHLORIDE 0.9% INJ 10 ML VIAL ONE (16:17)
[2021-07-14] MEDS ORDERED: fentaNYL 2MCG/ML ROPIVACAINE 1.25MG/ML 100 ML BAG EPI ONE (16:18)
[2021-07-14] MEDS ORDERED: fentaNYL 2MCG/ML ROPIVACAINE 1.25MG/ML 100 ML BAG EPI PRN (17:37)
[2021-07-14] MEDS ORDERED: NALBUPHINE HCL INJ 10 MG/ML AMP IV PRN (17:37)
[2021-07-14] MEDS ORDERED: ONDANSETRON INJ 2 MG/ML 2 ML VIAL IV PRN (17:37)
[2021-07-14] MEDS ORDERED: diphenhydrAMINE 50 MG/ML VIAL IV PRN (17:37)
[2021-07-14] MEDS ORDERED: NALOXONE HCL 0.4 MG/1 ML VIAL/CARP IV PRN (17:37)
[2021-07-14] MEDS ORDERED: ePHEDrine sulfate 50 MG/ML AMP IV PRN (17:37)
[2021-07-14] MEDS ORDERED: NALOXONE HCL 1 MG in SODIUM CHLORIDE 0.9% 1000ML 1,000 ML IV PRN (17:37)
[2021-07-14] MEDS ORDERED: PROMETHAZINE HCL 6.25 MG in SODIUM CHLORIDE 0.9% 50 ML IV PRN (17:37)
--- NOTE | 2021-07-14 17:37 | Anesthesiology Consultation ---
Date of Service July 14, 2021 Assessment & Plan Chart Review Chart Review: Patient NOT seen in Pre Admission Testing and Acceptable Risk for Labor Epidural Consults Requested none ASA ASA2 Proposed Anesthesia Anesthesia Type: Labor Epidural Risk / Benefits Reviewed With: PT / POA / Parent / Guardian, Accepts Plan and Informed Consent Obtained History Height/Weight Height: 5 ft 7 in Weight: 88.904 kg Allergies Allergy/AdvReac Type Severity Reaction Status Date / Time banana Allergy Severe THROAT Verified 07/13/21 10:20 CLOSES/HIVES Medications Home Medications Medication Instructions Recorded Confirmed Last Taken prenat.vits,antonia,enc-pyfs-rjjdr 1 tab PO DAILY 11/22/20 07/13/21 07/14/21 09:00 albuterol sulfate 90 mcg/actuation 2 puff INH QID PRN #8 gm 02/21/21 07/13/21 07/14/21 10:00 aerosol inhaler Active Medications Generic Name Dose Route Start Last Admin Trade Name Freq PRN Reason Stop Dose Admin Lactated Ringer's 1,000 mls @ 125 mls/hr 07/14/21 14:16 07/14/21 17:00 Lr IV 07/16/21 14:15 125 mls/hr .Q8H PRN Infusion L&D Protocol Protocol Oxytocin 30 units in 500 mls @ 6 mls/hr 07/14/21 14:18 07/14/21 17:00 Pitocin IV 07/16/21 14:17 0.36 units/hr .Q24H PRN 6 mls/hr Labor Induction/Augmentation Titration Protocol 0.36 UNITS/HR Past Medical History Medical History (Updated 07/14/21 @ 15:07 by Srinivas Zaragoza MD) Asthma Uses Albuterol PRN Asthma Bleeding in early Drug abuse, marijuana Previous . History of varicella Maternal UTI (urinary tract infection) Maternal UTI (urinary tract infection) Nausea and vomiting in No significant past medical history Exercise / Class Metabolic Activity II 4-5 Yardwork/Stairs/Walk up hill Past Family History Family History Mother Ovarian cancer Other Family history non-contributory Denies family history of Prostate cancer Myocardial infarction Breast cancer Colorectal cancer Past Surgical History Surgical History No significant past surgical history S/P wisdom tooth extraction Past Anesthesia History No Hx of Anesthesia Complications and No Family Hx of Anesthesia Complications History of PONV No Hx of PONV and No Hx of Motion Sickness Social History Smoking Status: Former smoker tobacco type: cigarettes Smoking cigarettes per day: 1 ppd Do You Dip or Chew Tobacco: No Hx Alcohol Use: No Hx Substance Use: No substance use type: does not use Last Used Substance Other:: Pt discontinued use Physical Exam Vital Signs Last Vital Signs Temp 37.0 C 07/14/21 14:21 Pulse 74 07/14/21 17:32 Resp 20 07/14/21 17:00 BP 121/72 07/14/21 17:32 Pulse Ox 98 07/14/21 17:30 ENMT Mouth: no dentition abnormality Thyromental Distance: > or= 3.5 Finger Breadths Mallampati Class: II Neck normal visual inspection Respiratory normal respiratory effort Auscultation: lungs clear to auscultation bilaterally Cardiovascular Rate/Rhythm: regular rate and regular rhythm Psychiatric Orientation: alert Testing Laboratory Results 07/14/21 14:22
--- NOTE | 2021-07-14 18:29 | Labor Progress Brief Note ---
Date of Service July 14, 2021 Subjective Reason For Note: Routine Evaluation Assessment & Plan (1) Supervision of elderly multigravida: Plan: Mayela is a 36-year-old admitted at 40 weeks 3 days gestational age for induction of labor for late term . Patient doing well today. 1. Fetus: Cat 1 2. Labor: Pitocin. AROM-mec. Progressing 3. GBS negative 4. Vitals: WNL (2) Post-term , 40-42 weeks of gestation: Admission and Anticipated Discharge Date Admission Date: July 14, 2021 Physical Exam Genitourinary: Manual OB Exam: + cervical dilation 3 cm, + cervical effacement 80%, + station -2 and + amniotic fluid meconium OB Exam Monitor Tracing: + external FHT monitor used, + external uterine monitor used, + category I and + normal FHT variability; no early decelerations present, no late decelerations present and no variable decelerations Results & Data ([facility]) Vital Signs (Past 12 Hours) Vital Signs Temp Pulse Resp BP Pulse Ox 07/14/21 18:25 70 98 07/14/21 18:20 66 97 07/14/21 18:15 75 99 07/14/21 18:14 36.7 C 18 07/14/21 18:10 81 97 07/14/21 18:06 68 97/52 L 07/14/21 18:05 78 96 07/14/21 18:02 71 99/47 L 07/14/21 18:00 77 97 07/14/21 17:58 77 92/55 L 07/14/21 17:55 85 98 07/14/21 17:54 18 07/14/21 17:52 71 127/84 07/14/21 17:50 74 98 07/14/21 17:46 60 113/64 07/14/21 17:45 73 98 07/14/21 17:41 67 115/65 07/14/21 17:40 71 97 07/14/21 17:37 62 110/57 L 07/14/21 17:36 18 07/14/21 17:35 78 98 07/14/21 17:32 74 121/72 07/14/21 17:30 65 98 07/14/21 17:25 82 99 07/14/21 17:21 63 108/55 L 07/14/21 17:20 82 99 07/14/21 17:17 90 107/59 L 07/14/21 17:16 16 07/14/21 17:15 79 104/62 98 07/14/21 17:13 76 109/57 L 07/14/21 17:11 66 112/57 L 07/14/21 17:10 65 98 07/14/21 17:09 70 101/57 L 07/14/21 17:08 66 110/54 L 07/14/21 17:05 73 118/70 98 07/14/21 17:03 76 113/57 L 07/14/21 17:01 74 112/56 L 07/14/21 17:00 88 20 98 07/14/21 16:59 66 105/56 L 07/14/21 16:57 71 20 107/61 07/14/21 16:55 71 104/64 98 07/14/21 16:53 88 106/65 07/14/21 16:52 18 07/14/21 16:51 67 106/59 L 07/14/21 16:50 68 98 07/14/21 16:49 72 20 108/56 L 07/14/21 16:47 82 112/56 L 07/14/21 16:46 18 07/14/21 16:45 77 112/63 97 07/14/21 16:44 78 112/55 L 07/14/21 16:43 18 07/14/21 16:41 79 133/70 07/14/21 16:40 72 98 07/14/21 16:39 67 129/67 07/14/21 16:35 80 99 07/14/21 16:30 82 132/78 98 07/14/21 16:25 76 100 07/14/21 16:12 76 101/64 07/14/21 15:10 74 116/68 07/14/21 14:21 37.0 C 18 07/14/21 14:07 88 115/61 Coding Level of Care Code None Diagnoses Supervision of elderly multigravida O09.529 Post-term , 40-42 weeks of gestation O48.0
[2021-07-14] MEDS ORDERED: BENZOCAINE 20% AER SPR 82.5 GM CAN EXT PRN (22:24)
[2021-07-14] MEDS ORDERED: ACETAMINOPHEN 325 MG TAB PO PRN (22:24)
[2021-07-14] MEDS ORDERED: DIPHTHERIA/TETANUS/PERTUSSIS 0.5 ML SYR/VIAL IM ONE (22:24)
[2021-07-14] MEDS ORDERED: HYDROCORTISONE ACETATE 25 MG SUPP PR PRN (22:24)
[2021-07-15] MEDS: IBUPROFEN 600 MG TAB PO PRN ×5 (00:12→20:34)
--- NOTE | 2021-07-15 06:06 | Delivery Summary ---
DATE OF SERVICE: 07/14/2021 PROCEDURE: Normal spontaneous vaginal delivery. SURGEON: Srinivas Zaragoza MD PREOPERATIVE DIAGNOSES: 1. Single intrauterine at term. 2. Advanced maternal age. 3. Meconium-stained fluid. POSTOPERATIVE DIAGNOSES: 1. Single intrauterine at term. 2. Advanced maternal age. 3. Meconium-stained fluid. 4. Status post delivery. ESTIMATED BLOOD LOSS: 200 mL. DRAINS: None. FLUIDS: Continuous lactated Ringer. URINE OUTPUT: Not measured. COMPLICATIONS: None. FINDINGS: Viable male with weight and Apgars pending. DESCRIPTION OF PROCEDURE: The patient progressed to 10 cm dilated, 100% effaced, positive 2 station, pushed over intact perineum with epidural anesthesia and delivered a viable male infant, weight and Apgars as noted above. Head of the delivered in COLLEEN position, restituted right transverse. Nuchal cord x2 was noted, which was easily reduced. Body and shoulders quickly followed. wa s noted to be vigorous soon after delivery and 1-minute delayed cord clamping was initiated. Cord wa s then double clamped and cut. remained in the maternal abdomen. Cord blood was obtained. Attention was then turned to delivery of the placenta, which was delivered intact, 3-vessel cord, gen tle cord traction. On inspection of the perineum, vagina, cervix, there were noted to be no lacerati ons. Sponge and instrument counts were correct at the completion of the case. Job ID: [id number]
--- NOTE | 2021-07-15 06:12 | Obstetrical Progress Note ---
Date of Service <Lisbeth Billingsley MD - Last Filed: 07/15/21 08:27> July 15, 2021 Assessment & Plan <Lisbeth Billingsley MD - Last Filed: 07/15/21 08:27> (1) Vaginal delivery: 36 yo now PPD1 from [facility] at 40wk3d -Continue routine care -Vitals reviewed- HDS, afebrile -Encourage , ambulation -Pain control with ibuprofen, acetaminophen PRN -Hgb 10.8, stable <Srinivas Zaragoza MD - Last Filed: 07/18/21 08:25> (1) Vaginal delivery: Subjective <Lisbeth Billingsley MD - Last Filed: 07/15/21 08:27> Ambulation: ambulating normally Voiding: no voiding problems Passing Gas:: No Diet Tolerance:: regular diet Lochia:: Small Feeding Type:: breast feeding Current Pain Level(1-10): 5 Pt doing well overall, no acute complaints or distress. Crampy pain occurs with . Pain well controlled with medication. Review of Systems Denies fever/chills. Denies dyspnea, cough. Denies chest pain. Denies breast pain or discharge. Denies dysuria. Denies headache. Denies back pain. Physical Exam <Lisbeth Billingsley MD - Last Filed: 07/15/21 08:27> General: Alert, oriented, no acute distress Cardiac: Regular rate and rhythm, normal S1, S2. No murmurs appreciated. Respiratory: Clear to auscultation b/l with good air flow entry, symmetric chest rise and fall. No wheezes or crackles. No increased work of breathing or accessory muscle use Abdomen: Soft, nontender, nondistended. Fundus firm and palpable at 2 cm below umbilicus. No guarding or rebound. Skin: No rashes or lesions Extremities: Warm, dry, well-perfused with capillary refill <2s b/l. No lower extremity edema, erythema, swelling or calf tenderness b/l. Results & Data ([facility]) <Lisbeth Billingsley MD - Last Filed: 07/15/21 08:27> Vital Signs (Past 12 Hours) Vital Signs Temp Pulse Pulse Resp BP BP Pulse Ox 07/15/21 04:45 36.6 C 74 20 108/66 97 07/15/21 00:00 36.7 C 78 20 112/71 98 07/14/21 23:12 69 125/58 L 07/14/21 22:57 70 154/56 H 07/14/21 22:41 70 133/78 07/14/21 22:27 62 129/69 07/14/21 22:12 73 118/75 07/14/21 21:57 65 126/82 07/14/21 21:45 69 98 07/14/21 21:42 67 127/59 L 07/14/21 21:40 70 98 07/14/21 21:35 68 97 07/14/21 21:30 59 L 98 07/14/21 21:27 65 111/58 L 07/14/21 21:25 68 97 07/14/21 21:20 64 98 07/14/21 21:15 75 97 07/14/21 21:10 76 98 07/14/21 21:05 65 97 07/14/21 21:03 66 93 07/14/21 21:00 63 97 07/14/21 20:56 57 L 99/51 L 07/14/21 20:55 58 L 97 07/14/21 20:50 61 97 07/14/21 20:45 61 97 07/14/21 20:42 58 L 99/58 L 07/14/21 20:40 64 98 07/14/21 20:35 58 L 96 07/14/21 20:30 69 95 07/14/21 20:28 61 93/67 L 07/14/21 20:25 62 96 07/14/21 20:20 74 97 07/14/21 20:15 92 H 97 07/14/21 20:12 61 116/55 L 07/14/21 20:10 74 97 07/14/21 20:06 64 94 07/14/21 20:05 62 94 07/14/21 20:00 75 95 07/14/21 19:57 59 L 90/52 L 07/14/21 19:56 61 94 07/14/21 19:55 66 95 07/14/21 19:50 61 95 07/14/21 19:48 63 94 07/14/21 19:45 67 95 05/27/22 19:42 62 95/52 L 05/27/22 19:41 67 94 07/14/21 19:40 82 95 07/14/21 19:35 66 95 07/14/21 19:34 63 94 07/14/21 19:30 66 95 07/14/21 19:28 63 95/51 L 07/14/21 19:25 71 95 07/14/21 19:20 65 94 07/14/21 19:15 67 95 07/14/21 19:11 67 97/52 L 07/14/21 19:10 72 96 07/14/21 19:06 36.7 C 18 07/14/21 19:05 84 97 07/14/21 19:00 62 95 07/14/21 18:59 66 94 07/14/21 18:57 72 93/50 L 07/14/21 18:55 73 95 07/14/21 18:50 65 95 07/14/21 18:45 68 95 07/14/21 18:42 70 97/52 L 07/14/21 18:40 84 97 07/14/21 18:35 65 96 07/14/21 18:30 68 96 07/14/21 18:28 64 106/51 L 07/14/21 18:25 70 98 07/14/21 18:20 66 97 07/14/21 18:15 75 99 07/14/21 18:14 36.7 C 18 07/14/21 18:10 81 97 <Srinivas Zaragoza MD - Last Filed: 07/18/21 08:25> Co-Signing Physician Notes Patient seen and evaluated and agree with the above findings and plan. Routine care Resident Activity Tracking <Lisbeth Billingsley MD - Last Filed: 07/15/21 08:27> Resident Involvement: Resident Care Provided Care Provided: OB Delivery
[2021-07-15 07:12] LABS: Hematocrit (blood only) 32.6 % (37-47); Hemoglobin 10.8 g/dL (12.0-16.0)
[2021-07-15] MEDS: PRENATAL VITAMIN 1 TAB PO SCH (08:11)
[2021-07-15] MEDS: FERROUS SULFATE 325 MG TAB PO SCH (08:11)
[2021-07-15] MEDS: DOCUSATE SODIUM 100 MG CAP PO SCH ×2 (08:11→20:33)
[2021-07-15] MEDS ORDERED: NURSING DECISION MEDICATION ONE (10:44)
[2021-07-15] MEDS ORDERED: CALCIUM CARBONATE 500 MG CHEWABLE TAB PO PRN (11:02)
[2021-07-15] MEDS: oxyCODONE/ACETAMINOPHEN 5mg/325mg TAB PO PRN ×2 (16:05→23:03)
[2021-07-15] MEDS ORDERED: bisacodyL 5 MG TABEC PO SCH (20:00)
--- NOTE | 2021-07-16 02:24 | Anesthesia Procedure Note ---
Date of Service July 16, 2021 Anesthesia Post Epidural Note Vital Signs Vital Signs: Temp Pulse Resp BP Pulse Ox 36.3 C L 73 20 105/67 99 07/15/21 20:00 07/15/21 20:00 07/15/21 20:00 07/15/21 20:00 07/15/21 20:00 Pain Intensity Abdomen: Pain Intensity: 7 Back: Pain Intensity: 6 Notes Mental Status: alert / awake / arousable Nausea / Vomiting: adequately controlled Pain: adequately controlled Airway Patency, RR, SpO2: stable & adequate BP & HR: stable & adequate Hydration State: stable & adequate Neuraxial Anesthesia: was administered and sensory block is resolving Anesthetic Complications: no major complications apparent and Pt Satisfied with anesthetic care Epidural: Removed without complications and With tip intact
--- NOTE | 2021-07-16 08:24 | Obstetrical Progress Note ---
Date of Service July 16, 2021 Assessment & Plan (1) Vaginal delivery: Plan d/c. Instructions given. h/h stable. blood type O+. Day #:: 2 Subjective Ambulation: ambulating normally Voiding: no voiding problems Passing Gas:: Yes Diet Tolerance:: regular diet Lochia:: Small Feeding Type:: breast feeding Had alot of uterine cramping overnight. Physical Exam Constitutional WD/WN, vitals as above Respiratory normal respiratory effort, lungs clear to auscultation Cardiovascular RRR, no murmur, no edema Extremities: no calf tenderness and no edema Gastrointestinal (Abdomen) soft, nt, nd, ff/nt 2 below u Psychiatric A+Ox3, euthymic affect Results & Data ([facility]) Vital Signs (Past 12 Hours) Vital Signs Temp Pulse Resp BP Pulse Ox 07/16/21 04:45 36.6 C 69 18 129/77 97
[2021-07-16] MEDS: FERROUS SULFATE 325 MG TAB PO SCH (08:39)
[2021-07-16] MEDS: PRENATAL VITAMIN 1 TAB PO SCH (08:39)
[2021-07-16] MEDS: IBUPROFEN 600 MG TAB PO PRN (08:39)
[2021-07-16] MEDS: DOCUSATE SODIUM 100 MG CAP PO SCH (08:39)
[2021-07-16] MEDS: oxyCODONE/ACETAMINOPHEN 5mg/325mg TAB PO PRN (08:40)
[2021-07-16] MEDS ORDERED: bisacodyL 10 MG SUPP PR PRN (22:24)
== END 2021-07-16 11:00 | disposition home or self-care (01) | DRG 807 ==
LOC: 4S1 13:59 → 4E2 07-15 00:18